=== PATIENT | male | born 1935 | race Caucasian/White ===

== ENCOUNTER 2024-11-06 16:27 | Observation (INO) | payer BC, MEDICARE ==
--- NOTE | 2024-11-06 17:16 | ED ---
General Adult HPI - General Chief complaint: Chest Pain Stated complaint: Flu Symptoms Time Seen by Provider: 11/06/24 16:37 Source: EMS Mode of arrival: EMS - History of Present Illness Initial comments: Dictation was produced using [employer] dictation software. please excuse any grammatical, word or spelling errors. Chief Complaint: 88-year-old male transfer from [facility] for elevated troponin History of Present Illness: Patient is an 80-year-old male he initially presented to [facility] for dizziness. He has had multiple falls. He has been dizzy for the last 3 days. Denies any cough or shortness of breath. Presented to [facility] where he had extensive workup which showed lung infiltrate. He was also positive for influenza A. He had a troponin level that was 0.042. 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 States that he feels dizzy at the bedside and no point in the last week or so has he had any chest pain or shortness of breath. He has had some coughing. The ROS documented in this emergency department record has been reviewed and confirmed by me. Those systems with pertinent positive or negative responses have been documented in the HPI. All other systems are other negative and/or noncontributory. - Related Data Home Medications Medication Instructions Recorded Confirmed Levothyroxine Sodium [Synthroid] 50 mcg PO AC-BRKFST 03/08/18 11/06/24 hydroCHLOROthiazide [Hydrodiuril] 50 mg PO DAILY 03/08/18 11/06/24 Aspirin EC [Ecotrin Low Dose] 81 mg PO DAILY 11/06/24 11/06/24 Atorvastatin [Lipitor] 40 mg PO HS 11/06/24 11/06/24 Empagliflozin [Jardiance] 10 mg PO DAILY 11/06/24 11/06/24 Insulin Glargine,Hum.rec.anlog 85 units SQ DAILY 11/06/24 11/06/24 [Lantus Solostar Pen] Metoprolol Succinate [Toprol XL] 50 mg PO DAILY 11/06/24 11/06/24 allopurinoL 100 mg PO DAILY 11/06/24 11/06/24 amLODIPine [Norvasc] 10 mg PO DAILY 11/06/24 11/06/24 Allergies Allergy/AdvReac Type Severity Reaction Status Date / Time Penicillins Allergy skin Verified 11/06/24 19:56 peeled off bottom of feet Sulfa (Sulfonamide AdvReac Itching Verified 11/06/24 19:56 Antibiotics) Review of Systems ROS Statement: Those systems with pertinent positive or pertinent negative responses have been documented in the HPI. ROS Other: All systems not noted in ROS Statement are negative. Past Medical History Past Medical History: Cancer, Diabetes Mellitus, Hyperlipidemia, Hypertension, Thyroid Disorder Additional Past Medical History / Comment(s): colon CA History of Any Multi-Drug Resistant Organisms: None Reported Past Surgical History: Bowel Resection Past Anesthesia/Blood Transfusion Reactions: No Reported Reaction Past Psychological History: No Psychological Hx Reported Smoking Status: Never smoker Past Alcohol Use History: None Reported Past Drug Use History: None Reported - Past Family History Mother Family Medical History: No Reported History Additional Family Medical History / Comment(s): at age 96 Father Family Medical History: Cancer Additional Family Medical History / Comment(s): colon General Exam - General Exam Comments Initial Comments: PHYSICAL EXAM: General Impression: Alert and oriented x3, not in acute distress HEENT: Normocephalic atraumatic, extra-ocular movements intact, pupils equal and reactive to light bilaterally, mucous membranes moist. Cardiovascular: Heart regular rate and rhythm Chest: Able to complete full sentences, no retractions, no tachypnea Abdomen: abdomen soft, non-tender, non-distended, no organomegaly Musculoskeletal: Pulses present and equal in all extremities, no peripheral edema Motor: no focal deficits noted Neurological: CN II-XII grossly intact, no focal motor or sensory deficits noted Skin: Intact with no visualized rashes Psych: Normal affect and mood Course Vital Signs 11/06/24 11/06/24 11/06/24 16:33 17:00 18:00 Temperature 99.8 F H Pulse Rate 86 80 84 Respiratory 20 21 19 Rate Blood Pressure 131/69 139/60 134/62 O2 Sat by Pulse 91 L 94 L 95 Oximetry 11/06/24 18:30 Temperature 98.9 F Pulse Rate 76 Respiratory 20 Rate Blood Pressure 143/81 O2 Sat by Pulse 95 Oximetry - Reevaluation(s) Reevaluation #1: 11/06/24 17:15 Transfer documentation was reviewed. Patient extensive workup. Troponin 0.042. There was a lung infiltrate seen on his x-ray of the chest. He was given 1 L of fluids. He was not given any aspirin or antibiotics. At the bedside patient is well-appearing in no acute distress. EKG Findings - EKG Comments: EKG Findings:: My EKG interpretation: Ventricular rate 87, sinus rhythm,. Normal 205, QRS 105, QTc 4 3. No OH prolongation, no QTC prolongation, no ST or T-wave changes noted. Overall, this EKG is unremarkable Medical Decision Making - Medical Decision Making Was pt. sent in by a medical professional or institution (, PA, LOGGING SPECIALIST, urgent care, hospital, or retirement...) When possible be specific @ -Transferred from outside emergency department Did you speak to anyone other than the patient for history (EMS, parent, family, police, friend...)? What history was obtained from this source @ -[No] Did you review nursing and triage notes (agree or disagree)? Why? @ -[I reviewed and agree with nursing and triage notes] Were old charts reviewed (outside hosp., previous admission, EMS record, old EKG, old radiological studies, urgent care reports/EKG's, retirement records)? Report findings @ -Transfer documentation reviewed Differential Diagnosis (chest pain, altered mental status, abdominal pain women, abdominal pain men, vaginal bleeding, musculoskeletal, weakness, fever, dyspnea, syncope, headache, dizziness, GI bleed, back pain, seizure, CVA, palpatations, mental health)? @ -Differential Dizziness: Benign paroxysmal positional Vertigo, Meniere's disease, otitis media, acoustic neuroma, vertebrobasilar insufficiency, cerebellar stroke, encephalitis, hypovolemic, arrhythmia, coronary artery syndrome, anemia, this is not meant to be an all-inclusive list EKG interpreted by me (3pts min.). @ -See above X-rays interpreted by me (1pt min.). @ -[None done] CT interpreted by me (1pt min.). @ -[None done] U/S interpreted by me (1pt. min.). @ -[None done] What testing was considered but not performed or refused? (CT, X-rays, U/S, labs)? Why? @ -[None] What meds were considered but not given or refused? Why? @ -[None] Was smoking cessation discussed for >3mins.? @ -[No] Were there social determinants of health that impacted care today? How? (Homelessness, low income, unemployed, alcoholism, drug addiction, transportation, low edu. Level, literacy, decrease access to med. care, retirement, rehab)? @ -[No] Was there de-escalation of care discussed even if they declined (Discuss DNR or withdrawal of care, Hospice)? DNR status @ -[No] What co-morbidities impacted this encounter? (DM, HTN, Smoking, COPD, CAD, Cancer, CVA, ARF, Chemo, Hep., AIDS, mental health diagnosis, sleep apnea, morbid obesity)? @ -[None] Was patient admitted / discharged? Hospital course, mention meds given and route, prescriptions, significant lab abnormalities, going to OR and other pertinent info. @ -80-year-old male transferred from outside hospital for elevated troponin. He was found to be influenza A positive. Vital signs upon arrival are within acceptable limits. Troponin repeated 0.056. EKG shows no signs of ischemia infarction. Patient does not have any ACS symptoms at the bedside. He will be admitted observation consultation to cardiology for elevated troponin. Covered with aspirin. Patient had infiltrate on his x-ray from outside hospital. Cover with antibiotics for possible coexisting community-acquired pneumonia. Patient also given Tamiflu given that he is 3 days symptomatic. Did you discuss the management of the patient with other professionals (professionals i.e. , PA, LOGGING SPECIALIST, lab, RT, psych nurse, long term care social worker, regulatory compliance engineer, teacher, child support officer, nurse case manager)? Give summary @ -Case discussed with hospitalist for admission Was critical care preformed (if so, how long)? @ -[No] Undiagnosed new problem with uncertain prognosis? @ -[No] Drug Therapy requiring intensive monitoring for toxicity (Heparin, Nitro, Insulin, Cardizem)? @ -[No] Were any procedures done? @ -[No] Diagnosis/symptom? Acute, or Chronic, or Acute on Chronic? Uncomplicated (without systemic symptoms) or Complicated (systemic symptoms)? @ -Elevated troponin Side effects of treatment? @ -[No] Exacerbation, Progression, or Severe Exacerbation? @ -[No] Poses a threat to life or bodily function? How? (Chest pain, [place], [place], pneumonia, PE, COPD, DKA, ARF, appy, cholecystitis, CVA, Diverticulitis, Homicidal, Suicidal, threat to staff... and all critical care pts) @ -yes - Lab Data Lab Results 11/06/24 Range/Units 17:49 Troponin I 0.056 H* (0.000-0.034) ng/mL Disposition Clinical Impression: Elevated troponin Disposition: ADMITTED IP TO THIS HOSP Condition: Fair Referrals: Eyad Muniz MD [Primary Care Provider] - 1-2 days Decision Time: 20:53
[2024-11-06] MEDS: ASPIRIN 81 MG PO STA (17:51)
[2024-11-06] MEDS: cefTRIAXone IN SWFI 1,000 MG/10 ML SYRINGE IVP STA (17:51)
[2024-11-06] MEDS: AZITHROMYCIN 500 MG in SODIUM CHLORIDE 0.9% 250 ML IVPB STA (17:52)
[2024-11-06] MEDS ORDERED: NITROGLYCERIN SL TABS 0.4 MG TAB SUBLINGUAL PRN (20:32)
[2024-11-06] MEDS: OSELTAMIVIR 75 MG CAP PO SCH (20:38)
[2024-11-07 06:28] LABS: Glucose,Whole Blood 46 mg/dL (70-110)
[2024-11-07 06:45] LABS: Glucose,Whole Blood 60 mg/dL (70-110)
[2024-11-07 07:06] LABS: Glucose,Whole Blood 98 mg/dL (70-110)
[2024-11-07 08:07] LABS: Basophils % (A) 0 %; Eosinophils % (A) 0 %; HGB 12.4 gm/dL (13.0-17.5); Lymphocytes # (A) 0.4 k/uL (1.0-4.8); Lymphocytes % (A) 5 %; MCH 30.5 pg (25.0-35.0); MCHC 33.6 g/dL (31.0-37.0); MCV 90.6 fL (80.0-100.0); Mean Platelet Volume 6.9; Monocytes # (A) 0.8 k/uL (0-1.0); Monocytes % (A) 9 %; Neutrophils # (A) 7.6 k/uL (1.3-7.7); Neutrophils % (A) 85 %; Platelet Count 101 k/uL (150-450); RBC 4.08 m/uL (4.30-5.90); RDW 14.6 % (11.5-15.5)
[2024-11-07 08:09] LABS: ALT 33 U/L (4-49); AST 57 U/L (17-59); African American GFR (CKD) 42 (>60 ml/min/1.73 sqM); Albumin 3.7 g/dL (3.5-5.0); Alkaline Phosphatase 81 U/L (38-126); Anion Gap 8 mmol/L; Blood Urea Nitrogen 39 mg/dL (9-20); Calcium 9.4 mg/dL (8.4-10.2); Carbon Dioxide 30 mmol/L (22-30); Chloride 101 mmol/L (98-107); Glucose 115 mg/dL (74-99); Magnesium 2.1 mg/dL (1.6-2.3); Non-African American GFR(CKD) 36 (>60 ml/min/1.73 sqM); Potassium 3.3 mmol/L (3.5-5.1); Sodium 139 mmol/L (137-145); Total Bilirubin 0.5 mg/dL (0.2-1.3)
[2024-11-07] MEDS: ASPIRIN 325 MG TAB PO SCH (08:50)
[2024-11-07] MEDS ORDERED: DEXTROSE 50% SYRINGE 50 ML IVP PRN ×2 (09:42)
--- NOTE | 2024-11-07 10:30 | XR ---
EXAMINATION TYPE: XR chest 2V DATE OF EXAM: 11/07/2024 COMPARISON: 11/06/2024 CLINICAL INDICATION: Male, 88 years old with history of Shortness of breath; , TECHNIQUE: XR chest 2V views of the chest. FINDINGS: Elevated right hemidiaphragm with bilateral subsegmental areas of consolidation. No overt failure or pneumothorax. No pleural effusion. Chronic deformity of the distal right clavicle and arthropathy of the left AC joint. Atherosclerotic change aorta. No obvious pneumothorax. IMPRESSION: 1. Bibasilar atelectasis favored over pneumonia correlate clinically. [facility], , 11/07/2024 10:28 AM
[2024-11-07 11:01] LABS: Chol/HDL Ratio 2.56 Ratio; LDL Cholesterol,Calculated 36.2 mg/dL (0.0-131.0); VLDL Calculation 16.22 mg/dL (5.00-40.00)
[2024-11-07 11:58] LABS: Glucose,Whole Blood 189 mg/dL (70-110)
[2024-11-07] MEDS: AZITHROMYCIN 500 MG in SODIUM CHLORIDE 0.9% 250 ML IVPB SCH (11:58)
--- NOTE | 2024-11-07 12:04 | P.HPIM ---
History of Present Illness H&P Date: 11/07/24 History of present illness; patient is a 88-year-old gentleman with past medical history significant for hypertension, hyperlipidemia, diabetes mellitus, hypothyroidism who is a transferred to [facility] from [facility] for elevated troponin. Patient initially presented to [facility] for dizziness and falls. Patient stated that he was all right 4 days back when he started having dizziness, dizziness was intermittent, felt like the whole room was spinning. Patient denied any loss of consciousness. There was no complaint of weakness of any extremity. No complaint of jerking movement of any extremity. There is no complaint of fever or chills. Patient denies any chest pain or shortness of breath. Patient was complaining of cough. Because of dizziness, patient went to [facility] where he was found to have influenza A and infiltrate on chest x-ray. Patient was started on Tamiflu, because of elevated troponin patient was transferred to [facility]. Patient admitted to internal medicine service REVIEW OF SYSTEMS: CONSTITUTIONAL: No fever, no malaise, no fatigue. HEENT: No recent visual problems or hearing problems. Denied any sore throat. CARDIOVASCULAR: As mentioned above PULMONARY: As mentioned above GASTROINTESTINAL: No diarrhea, no nausea, no vomiting, no abdominal pain. NEUROLOGICAL: No headaches, no weakness, no numbness. HEMATOLOGICAL: Denies any bleeding or petechiae. GENITOURINARY: Denies any burning micturition, frequency, or urgency. MUSCULOSKELETAL/RHEUMATOLOGICAL: Denies any joint pain, swelling, or any muscle pain. ENDOCRINE: Denies any polyuria or polydipsia. The rest of the 14-point review of systems is negative. PHYSICAL EXAMINATION: GENERAL: The patient is alert and oriented x3, not in any acute distress. Well developed, well nourished. HEENT: Pupils are round and equally reacting to light. EOMI. No scleral icterus. No conjunctival pallor. Normocephalic, atraumatic. No pharyngeal erythema. No thyromegaly. CARDIOVASCULAR: S1 and S2 present. No murmurs, rubs, or gallops. PULMONARY: Chest is clear to auscultation, no wheezing or crackles. ABDOMEN: Soft, nontender, nondistended, normoactive bowel sounds. No palpable organomegaly. MUSCULOSKELETAL: No joint swelling or deformity. EXTREMITIES: No cyanosis, clubbing, or pedal edema. NEUROLOGICAL: Gross neurological examination did not reveal any focal deficits. SKIN: No rashes. Assessment and plan Influenza A infection Bacterial pneumonia Dizziness Elevated troponin Hypertension Hyperlipidemia Diabetes mellitus Hypothyroidism Monitor vital signs Monitor CBC Monitor CMP Continue telemetry monitoring Trend troponin Ordered 2D echo Continue Tamiflu Ordered Rocephin and azithromycin Consult cardiology Resume home meds Labs and medication were reviewed.. Continue same treatment. Continue with symptomatic treatment. Resume home medication. Monitor labs and vitals. DVT and GI prophylaxis. Further recommendations as per clinical course of the patient Dictation was produced using [employer] dictation software. please excuse any grammatical, word or spelling errors. Past Medical History Past Medical History: Cancer, Diabetes Mellitus, Hyperlipidemia, Hypertension, Thyroid Disorder Additional Past Medical History / Comment(s): colon CA History of Any Multi-Drug Resistant Organisms: None Reported Past Surgical History: Bowel Resection Past Anesthesia/Blood Transfusion Reactions: No Reported Reaction Past Psychological History: No Psychological Hx Reported Smoking Status: Never smoker Past Alcohol Use History: None Reported Past Drug Use History: None Reported - Past Family History Mother Family Medical History: No Reported History Additional Family Medical History / Comment(s): at age 96 Father Family Medical History: Cancer Additional Family Medical History / Comment(s): colon Medications and Allergies Home Medications Medication Instructions Recorded Confirmed Type Levothyroxine Sodium [Synthroid] 50 mcg PO AC-BRKFST 03/08/18 11/06/24 History hydroCHLOROthiazide [Hydrodiuril] 50 mg PO DAILY 03/08/18 11/06/24 History Aspirin EC [Ecotrin Low Dose] 81 mg PO DAILY 11/06/24 11/06/24 History Atorvastatin [Lipitor] 40 mg PO HS 11/06/24 11/06/24 History Empagliflozin [Jardiance] 10 mg PO DAILY 11/06/24 11/06/24 History Insulin Glargine,Hum.rec.anlog 85 units SQ DAILY 11/06/24 11/06/24 History [Lantus Solostar Pen] Metoprolol Succinate [Toprol XL] 50 mg PO DAILY 11/06/24 11/06/24 History allopurinoL 100 mg PO DAILY 11/06/24 11/06/24 History amLODIPine [Norvasc] 10 mg PO DAILY 11/06/24 11/06/24 History Allergies Allergy/AdvReac Type Severity Reaction Status Date / Time Penicillins Allergy skin Verified 11/06/24 19:56 peeled off bottom of feet Sulfa (Sulfonamide AdvReac Itching Verified 11/06/24 19:56 Antibiotics) Physical Exam Vitals: Vital Signs Temp Pulse Resp BP Pulse Ox 11/07/24 08:46 98.0 F 81 18 131/75 99 11/07/24 05:00 98.4 F 81 17 141/65 94 L 11/06/24 21:00 74 20 141/76 94 L 11/06/24 20:00 78 20 136/58 97 11/06/24 19:00 79 16 132/80 96 11/06/24 18:30 98.9 F 76 20 143/81 95 11/06/24 18:00 84 19 134/62 95 11/06/24 17:00 80 21 139/60 94 L 11/06/24 16:33 99.8 F H 86 20 131/69 91 L Intake and Output 11/06/24 11/07/24 11/07/24 22:59 06:59 14:59 Other: Weight 92.986 kg Results CBC & Chem 7: 11/07/24 07:21 11/07/24 07:21 Labs: Abnormal Lab Results - Last 24 Hours (Table) 11/06/24 11/06/24 11/07/24 Range/Units 17:49 21:19 00:03 RBC (4.30-5.90) m/uL Hgb (13.0-17.5) gm/dL Hct (39.0-53.0) % Plt Count (150-450) k/uL Lymphocytes # (1.0-4.8) k/uL Potassium (3.5-5.1) mmol/L BUN (9-20) mg/dL Creatinine (0.66-1.25) mg/dL Glucose (74-99) mg/dL POC Glucose (mg/dL) (70-110) mg/dL Troponin I 0.056 H* 0.058 H* 0.058 H* (0.000-0.034) ng/mL Total Protein (6.3-8.2) g/dL 11/07/24 11/07/24 11/07/24 Range/Units 06:23 06:44 07:21 RBC (4.30-5.90) m/uL Hgb (13.0-17.5) gm/dL Hct (39.0-53.0) % Plt Count (150-450) k/uL Lymphocytes # (1.0-4.8) k/uL Potassium 3.3 L (3.5-5.1) mmol/L BUN 39 H (9-20) mg/dL Creatinine 1.66 H (0.66-1.25) mg/dL Glucose 115 H (74-99) mg/dL POC Glucose (mg/dL) 46 L* 60 L (70-110) mg/dL Troponin I (0.000-0.034) ng/mL Total Protein 6.0 L (6.3-8.2) g/dL 11/07/24 Range/Units 07:21 RBC 4.08 L (4.30-5.90) m/uL Hgb 12.4 L (13.0-17.5) gm/dL Hct 37.0 L (39.0-53.0) % Plt Count 101 L (150-450) k/uL Lymphocytes # 0.4 L (1.0-4.8) k/uL Potassium (3.5-5.1) mmol/L BUN (9-20) mg/dL Creatinine (0.66-1.25) mg/dL Glucose (74-99) mg/dL POC Glucose (mg/dL) (70-110) mg/dL Troponin I (0.000-0.034) ng/mL Total Protein (6.3-8.2) g/dL
[2024-11-07] MEDS: INSULIN ASPART (NovoLOG) 100 UNIT/ML VIAL SQ SCH (15:12)
[2024-11-07 19:55] VITALS: RESP 18
[2024-11-07 19:57] LABS: Glucose,Whole Blood 190 mg/dL (70-110)
[2024-11-07] MEDS: OSELTAMIVIR 30 MG CAP PO SCH (20:41)
[2024-11-07] MEDS: ATORVASTATIN 40 MG TAB PO SCH (20:41)
--- NOTE | 2024-11-07 22:50 | P.CRDCN ---
History of Present Illness Consult date: 11/07/24 History of present illness: HISTORY OF PRESENTING ILLNESS 88-year-old with PMH of hypertension, dyslipidemia, type 2 diabetes, hypothyroidism. He presented to [facility] from [facility] because of elevated troponin. Patient initially presented to [facility] because of generalized weakness, fatigue and fall. Over the last 3 to 4 days he has been feeling like room spinning sensation, lightheadedness, dizziness. He denies any loss of consciousness. Admission labs BUN 39, creatinine 1.6, troponin elevated with a flat pattern of 0.58, repeat 0.58. LDL 36, HbA1c 8.2 Hb 12.4 Positive for influenza EKG shows sinus rhythm with frequent PVCs Chest x-ray shows no significant saltation or significant pulmonary congestion. Poor inspiratory effort. REVIEW OF SYSTEMS 14 point review of system is negative except what is mentioned above in HPI. PHYSICAL EXAMINATION Vital signs reviewed. Head: Normocephalic. Eyes: Sclerae nonicteric. Neck: Brisk carotid upstroke, no jugular venous distention. Lungs: Clear to auscultation. Heart: Regular rate and rhythm, S1-S2, no S3, no murmur or rub. Abdomen: Soft nontender, positive bowel sounds. Extremities: No edema, intact distal pulses. Neuro: Alert, oritented, no focal deficits. Detailed neuro exam was not performed. ASSESSMENT Elevated troponin, less likely related to ACS Frequent PVCs Influenza A infection Dizziness and generalized weakness, likely due to above Essential hypertension Dyslipidemia PLAN Patient only has minimal troponin elevation. It is most likely not related to acute coronary syndrome and could be related to patient's influenza state Patient's dizziness and lightheadedness and generalized weakness could be related to his influenza. For frequent PVCs, I will start him on metoprolol succinate 25 mg daily Continue to monitor telemetry Obtain updated echocardiogram Continue aspirin, Lipitor Monitor electrolyte, magnesium is 2.1, potassium 3.3 today. Repeat magnesium level and potassium levels tomorrow Check TSH, NTproBNP and Mg level Recommend outpatient ischemic workup if he has not had 1 recently with a stress test. Al Brewster MD, FACC, RPVI Thank you for allowing [facility] to participate in this patient's care. Feel free to reach out in case of any followup questions. Past Medical History Past Medical History: Cancer, Diabetes Mellitus, Hyperlipidemia, Hypertension, Thyroid Disorder Additional Past Medical History / Comment(s): colon CA History of Any Multi-Drug Resistant Organisms: None Reported Past Surgical History: Bowel Resection Past Anesthesia/Blood Transfusion Reactions: No Reported Reaction Past Psychological History: No Psychological Hx Reported Smoking Status: Never smoker Past Alcohol Use History: None Reported Past Drug Use History: None Reported - Past Family History Mother Family Medical History: No Reported History Additional Family Medical History / Comment(s): at age 96 Father Family Medical History: Cancer Additional Family Medical History / Comment(s): colon Medications and Allergies Home Medications Medication Instructions Recorded Confirmed Type Levothyroxine Sodium [Synthroid] 50 mcg PO AC-BRKFST 03/08/18 11/06/24 History hydroCHLOROthiazide [Hydrodiuril] 50 mg PO DAILY 03/08/18 11/06/24 History Aspirin EC [Ecotrin Low Dose] 81 mg PO DAILY 11/06/24 11/06/24 History Atorvastatin [Lipitor] 40 mg PO HS 11/06/24 11/06/24 History Empagliflozin [Jardiance] 10 mg PO DAILY 11/06/24 11/06/24 History Insulin Glargine,Hum.rec.anlog 85 units SQ DAILY 11/06/24 11/06/24 History [Lantus Solostar Pen] Metoprolol Succinate [Toprol XL] 50 mg PO DAILY 11/06/24 11/06/24 History allopurinoL 100 mg PO DAILY 11/06/24 11/06/24 History amLODIPine [Norvasc] 10 mg PO DAILY 11/06/24 11/06/24 History Allergies Allergy/AdvReac Type Severity Reaction Status Date / Time Penicillins Allergy skin Verified 11/06/24 19:56 peeled off bottom of feet Sulfa (Sulfonamide AdvReac Itching Verified 11/06/24 19:56 Antibiotics) Physical Exam Vitals: Vital Signs Temp Pulse Pulse Resp BP BP Pulse Ox 11/07/24 19:55 87 18 122/71 94 L 11/07/24 19:53 97.8 F 87 18 189/51 99 11/07/24 18:00 92 20 122/67 97 11/07/24 16:00 90 18 132/70 97 11/07/24 12:00 87 20 142/74 96 11/07/24 08:46 98.0 F 81 18 131/75 99 11/07/24 05:00 98.4 F 81 17 141/65 94 L Intake and Output 11/07/24 11/07/24 11/07/24 06:59 14:59 22:59 Other: Voiding Method External Catheter Weight 92.986 kg Results 11/07/24 07:21 11/07/24 07:21 Cardiac Enzymes 11/07/24 11/07/24 Range/Units 00:03 07:21 AST 57 (17-59) U/L Troponin I 0.058 H* (0.000-0.034) ng/mL Lipids 11/07/24 Range/Units 07:21 Triglycerides 81.10 (0.00-149.00) mg/dL Cholesterol 86.00 (0.00-200.00) mg/dL HDL Cholesterol 33.60 L (40.00-60.00) mg/dL Cholesterol/HDL Ratio 2.56 Ratio CBC 11/07/24 Range/Units 07:21 WBC 9.0 (3.8-10.6) k/uL RBC 4.08 L (4.30-5.90) m/uL Hgb 12.4 L (13.0-17.5) gm/dL Hct 37.0 L (39.0-53.0) % Plt Count 101 L (150-450) k/uL Comprehensive Metabolic Panel 11/07/24 Range/Units 07:21 Sodium 139 (137-145) mmol/L Potassium 3.3 L (3.5-5.1) mmol/L Chloride 101 (98-107) mmol/L Carbon Dioxide 30 (22-30) mmol/L BUN 39 H (9-20) mg/dL Creatinine 1.66 H (0.66-1.25) mg/dL Glucose 115 H (74-99) mg/dL Calcium 9.4 (8.4-10.2) mg/dL AST 57 (17-59) U/L ALT 33 (4-49) U/L Alkaline Phosphatase 81 (38-126) U/L Total Protein 6.0 L (6.3-8.2) g/dL Albumin 3.7 (3.5-5.0) g/dL Current Medications Generic Name Dose Route Start Last Admin Trade Name Freq PRN Reason Stop Dose Admin Allopurinol 100 mg 11/08/24 09:00 Allopurinol 100 Mg Tab PO DAILY [facility] Aspirin 81 mg 11/08/24 09:00 Aspirin 81 Mg PO DAILY [facility] Atorvastatin Calcium 40 mg 11/07/24 21:00 11/07/24 20:41 Atorvastatin 40 Mg Tab PO 40 mg HS BEN Administration Dextrose/Water 25 ml 11/07/24 09:42 Dextrose 50% Syringe 50 Ml IVP PER PROTOCOL PRN Hypoglycemia Protocol Dextrose/Water 50 ml 11/07/24 09:42 Dextrose 50% Syringe 50 Ml IVP PER PROTOCOL PRN Hypoglycemia Protocol Azithromycin 500 mg/ Sodium 250 mls @ 250 mls/hr 11/07/24 12:00 11/07/24 11:58 Chloride IVPB 11/08/24 12:59 250 mls/hr 1200 [facility] Administration Protocol Ceftriaxone Sodium 2 gm/ 50 mls @ 100 mls/hr 11/08/24 09:00 Sodium Chloride IVPB Q24HR [facility] Protocol Insulin Aspart 0 unit 11/07/24 12:30 11/07/24 20:40 Insulin Aspart (Novolog) 100 Unit/Ml Vial SQ Not Given ACHS [facility] Protocol Levothyroxine Sodium 50 mcg 11/08/24 07:30 Levothyroxine 50 Mcg Tab PO AC-BRKFST [facility] Nitroglycerin 0.4 mg 11/06/24 20:32 Nitroglycerin Sl Tabs 0.4 Mg Tab SUBLINGUAL Q5M PRN Chest Pain Oseltamivir Phosphate 30 mg 11/07/24 21:00 11/07/24 20:41 Oseltamivir 30 Mg Cap PO 11/11/24 09:01 30 mg Q12HR [facility] Administration Protocol Intake and Output 11/07/24 11/07/24 11/07/24 06:59 14:59 22:59 Other: Voiding Method External Catheter Weight 92.986 kg Patient Weight 11/08/24 06:59 Weight 92.986 kg 11/07/24 07:21 11/07/24 07:21
[2024-11-07] MEDS: METOPROLOL SUCCINATE (ER) 25 MG TAB.ER.24H PO SCH (23:07)
[2024-11-08] MEDS: LEVOTHYROXINE 50 MCG TAB PO SCH (06:06)
[2024-11-08 06:13] LABS: Glucose,Whole Blood 126 mg/dL (70-110)
[2024-11-08 08:12] LABS: NT-Pro-B-Type Natriuretic Pept 1750 pg/mL
--- NOTE | 2024-11-08 09:13 | P.CONS ---
History of Present Illness - Reason for Consult Consult date: 11/07/24 Influenza, pneumonia Requesting physician: Edward Flores - Chief Complaint Weakness and multiple falls x 3 days - History of Present Illness Patient is a 88-year-old male with a past medical history significant for diabetes mellitus hypertension hyperlipidemia colon cancer, patient has been brought to the hospital for evaluation of weakness dizziness and did have m ultiple falls patient symptom apparently has been getting worse over the last 3 days patient was initially evaluated at [facility] workup in the [facility] shows patient tested positive for influenza A and did have lung infiltrate concerning for pneumonia also elevated troponin for the patient has been transferred to [facility] for further evaluation patient on presentation to hospital have low-grade fever of 99.8 F patient was nontachycardic or hypotensive mildly hypoxic on 2 L nasal cannula oxygen, the patient did have elevated troponin BNP there is also mildly elevated chest x-ray with bibasilar atelectasis favored over pneumonia patient is started on Tamiflu close and Z ithromax infectious disease was consulted for further management of antibiotic therapy patient has been complaining of more weakness over the last 3 days dizziness and did have multiple falls. Denies having any headache or significant URI symptoms except some runny nose denies having any chest pain shortness but he did have mild cough not bringing up any sputum no nausea vomiting no choking on the food no abdominal pain no diarrhea Review of Systems Positive point and negatives has been mentioned in the HPI, complete review of systems was performed and all other systems are negative Past Medical History Past Medical History: Cancer, Diabetes Mellitus, Hyperlipidemia, Hypertension, Thyroid Disorder Additional Past Medical History / Comment(s): colon CA History of Any Multi-Drug Resistant Organisms: None Reported Past Surgical History: Bowel Resection Past Anesthesia/Blood Transfusion Reactions: No Reported Reaction Past Psychological History: No Psychological Hx Reported Smoking Status: Never smoker Past Alcohol Use History: None Reported Past Drug Use History: None Reported - Past Family History Mother Family Medical History: No Reported History Additional Family Medical History / Comment(s): at age 96 Father Family Medical History: Cancer Additional Family Medical History / Comment(s): colon Medications and Allergies Home Medications Medication Instructions Recorded Confirmed Type Levothyroxine Sodium [Synthroid] 50 mcg PO [id number] 03/08/18 11/06/24 History hydroCHLOROthiazide [Hydrodiuril] 50 mg PO DAILY 03/08/18 11/06/24 History Aspirin EC [Ecotrin Low Dose] 81 mg PO DAILY 11/06/24 11/06/24 History Atorvastatin [Lipitor] 40 mg PO HS 11/06/24 11/06/24 History Empagliflozin [Jardiance] 10 mg PO DAILY 11/06/24 11/06/24 History Insulin Glargine,Hum.rec.anlog 85 units SQ DAILY 11/06/24 11/06/24 History [Lantus Solostar Pen] Metoprolol Succinate [Toprol XL] 50 mg PO DAILY 11/06/24 11/06/24 History allopurinoL 100 mg PO DAILY 11/06/24 11/06/24 History amLODIPine [Norvasc] 10 mg PO DAILY 11/06/24 11/06/24 History Allergies Allergy/AdvReac Type Severity Reaction Status Date / Time Penicillins Allergy skin Verified 11/06/24 19:56 peeled off bottom of feet Sulfa (Sulfonamide AdvReac Itching Verified 11/06/24 19:56 Antibiotics) Physical Exam Vitals: Vital Signs Temp Pulse Resp BP Pulse Ox 11/07/24 08:46 98.0 F 81 18 131/75 99 11/07/24 05:00 98.4 F 81 17 141/65 94 L 11/06/24 21:00 74 20 141/76 94 L 11/06/24 20:00 78 20 136/58 97 11/06/24 19:00 79 16 132/80 96 11/06/24 18:30 98.9 F 76 20 143/81 95 11/06/24 18:00 84 19 134/62 95 11/06/24 17:00 80 21 139/60 94 L 11/06/24 16:33 99.8 F H 86 20 131/69 91 L Intake and Output 11/06/24 11/07/24 11/07/24 22:59 06:59 14:59 Other: Weight 92.986 kg GENERAL DESCRIPTION: Elderly male lying in bed, no distress. No tachypnea or accessory muscle of respiration use. HEENT: Shows Pallor , no scleral icterus. Oral mucous membrane is dry. NECK: Trachea central, no thyromegaly. LUNGS: Unlabored breathing. Decreased breath sound at the base HEART: S1, S2, regular rate and rhythm. No loud murmur ABDOMEN: Soft, no tenderness , EXTREMITIES: No edema of feet. SKIN: No rash, no masses palpable. NEUROLOGICAL: The patient is awake, alert, oriented x3, mood and affect normal. Results CBC & Chem 7: 11/07/24 07:21 11/07/24 07:21 Labs: Abnormal Lab Results - Last 24 Hours (Table) 11/06/24 11/06/24 11/07/24 Range/Units 17:49 21:19 00:03 RBC (4.30-5.90) m/uL Hgb (13.0-17.5) gm/dL Hct (39.0-53.0) % Plt Count (150-450) k/uL Lymphocytes # (1.0-4.8) k/uL Potassium (3.5-5.1) mmol/L BUN (9-20) mg/dL Creatinine (0.66-1.25) mg/dL Glucose (74-99) mg/dL POC Glucose (mg/dL) (70-110) mg/dL Hemoglobin A1c (<=6.0) % Troponin I 0.056 H* 0.058 H* 0.058 H* (0.000-0.034) ng/mL Total Protein (6.3-8.2) g/dL HDL Cholesterol (40.00-60.00) mg/dL 11/07/24 11/07/24 11/07/24 Range/Units 06:23 06:44 07:21 RBC (4.30-5.90) m/uL Hgb (13.0-17.5) gm/dL Hct (39.0-53.0) % Plt Count (150-450) k/uL Lymphocytes # (1.0-4.8) k/uL Potassium 3.3 L (3.5-5.1) mmol/L BUN 39 H (9-20) mg/dL Creatinine 1.66 H (0.66-1.25) mg/dL Glucose 115 H (74-99) mg/dL POC Glucose (mg/dL) 46 L* 60 L (70-110) mg/dL Hemoglobin A1c (<=6.0) % Troponin I (0.000-0.034) ng/mL Total Protein 6.0 L (6.3-8.2) g/dL HDL Cholesterol 33.60 L (40.00-60.00) mg/dL 11/07/24 11/07/24 Range/Units 07:21 07:21 RBC 4.08 L (4.30-5.90) m/uL Hgb 12.4 L (13.0-17.5) gm/dL Hct 37.0 L (39.0-53.0) % Plt Count 101 L (150-450) k/uL Lymphocytes # 0.4 L (1.0-4.8) k/uL Potassium (3.5-5.1) mmol/L BUN (9-20) mg/dL Creatinine (0.66-1.25) mg/dL Glucose (74-99) mg/dL POC Glucose (mg/dL) (70-110) mg/dL Hemoglobin A1c 8.2 H (<=6.0) % Troponin I (0.000-0.034) ng/mL Total Protein (6.3-8.2) g/dL HDL Cholesterol (40.00-60.00) mg/dL Assessment and Plan (1) Influenza A Current Visit: Yes Status: Acute Code(s): J10.1 - FLU DUE TO OTH IDENT INFLUENZA VIRUS W OTH RESP MANIFEST SNOMED Code(s): 115797974 (2) Pneumonia Current Visit: Yes Status: Acute Code(s): J18.9 - PNEUMONIA, UNSPECIFIED ORGANISM SNOMED Code(s): 114163563 Plan: 1patient presented to hospital with increasing weakness multiple falls and diz ziness etiology is multifactorial patient did tested positive for influenza A and there was concern for possible secondary bacterial pneumonia 2-try to obtain sputum for Gram stain culture check a CRP and procalcitonin level 3-patient be treated with a Tamiflu Rocephin and Zithromax while waiting for the workup to be completed Family the bedside question answered We will follow on clinical condition and cultures to further adjust medication if needed Thank you for this consultation we will follow the patient along with you Dictation was produced using [employer] dictation software. please excuse any grammatical, word or spelling errors. Time with Patient: Greater than 30
[2024-11-08] MEDS: allopurinoL 100 MG TAB PO SCH (09:29)
[2024-11-08] MEDS: ASPIRIN 81 MG PO SCH (09:29)
[2024-11-08 11:13] LABS: Glucose,Whole Blood 171 mg/dL (70-110)
--- NOTE | 2024-11-08 11:16 | PN ---
PROGRESS NOTE SUBJECTIVE: Bolivar is an 88-year-old gentleman with history of hypertension, dyslipidemia, diabetes and hypothyroidism who is transferred from [facility] to [facility] because of elevated troponin. The patient has frequent PVCs and runs of nonsustained VT. He is positive for influenza A. PHYSICAL EXAMINATION: GENERAL: This morning, he is stable hemodynamically, afebrile. VITAL SIGNS: Heart rate is 78 beats per minute, blood pressure is 130/52, respiratory rate is 18. CHEST: Reveals bilateral wheezing. HEART: Reveals first and second heart sounds. No gallop. EXTREMITIES: Reveal mild edema. Labs show a hemoglobin of 12.4, BUN is 39, creatinine is 1.6. BNP is 1750. CURRENT MEDICATIONS: Include: 1. Aspirin. 2. Lipitor. 3. Toprol. 4. Synthroid along with Tamiflu. ASSESSMENT AND PLAN: 1. Elevated troponin probably related to the flu-like illness. 2. Frequent premature ventricular contractions. PLAN: We will follow the echo results once they are available. CHUN / DIANAN: [id number] /
--- NOTE | 2024-11-08 16:20 | P.PN ---
Subjective Progress Note Date: 11/08/24 patient is a 88-year-old gentleman with past medical history significant for hypertension, hyperlipidemia, diabetes mellitus, hypothyroidism who is a transferred to [facility] from [facility] for elevated troponin. Patient initially presented to [facility] for dizziness and falls. Patient stated that he was all right 4 days back when he started having dizziness, dizziness was intermittent, felt like the whole room was spinning. Patient denied any loss of consciousness. There was no complaint of weakness of any extremity. No complaint of jerking movement of any extremity. There is no complaint of fever or chills. Patient denies any chest pain or shortness of breath. Patient was complaining of cough. Because of dizziness, patient went to [facility] where he was found to have influenza A and infiltrate on chest x-ray. Patient was started on Tamiflu, because of elevated troponin patient was transferred to [facility]. Patient admitted to internal medicine service 11/08. Patient seen and examined. Breathing is improved. REVIEW OF SYSTEMS: CONSTITUTIONAL: No fever, no malaise,. CARDIOVASCULAR: No chest pain, no palpitations, no syncope. PULMONARY: No shortness of breath, no cough, GASTROINTESTINAL: No diarrhea, no nausea, no vomiting, no abdominal pain. NEUROLOGICAL: No headaches, no weakness, PHYSICAL EXAMINATION: GENERAL: The patient is alert and oriented x3, not in any acute distress. Well developed, well nourished. HEENT: Pupils are round and equally reacting to light. EOMI. No scleral icterus. No conjunctival pallor. Normocephalic, atraumatic. No pharyngeal erythema. No thyromegaly. CARDIOVASCULAR: S1 and S2 present. No murmurs, rubs, or gallops. PULMONARY: Coarse breath sound bilaterally, no wheezing or crackles. ABDOMEN: Soft, nontender, nondistended, normoactive bowel sounds. No palpable organomegaly. MUSCULOSKELETAL: No joint swelling or deformity. EXTREMITIES: No cyanosis, clubbing, or pedal edema. NEUROLOGICAL: Gross neurological examination did not reveal any focal deficits. SKIN: No rashes. Assessment and plan Influenza A infection Bacterial pneumonia Dizziness Elevated troponin Hypertension Hyperlipidemia Diabetes mellitus Hypothyroidism Monitor vital signs Monitor CBC Monitor CMP Continue telemetry monitoring Trend troponin Ordered 2D echo Continue Tamiflu Continue Rocephin and azithromycin Cardiology evaluated, recommend outpatient ischemic workup Resume home meds Labs and medication were reviewed.. Continue same treatment. Continue with symptomatic treatment. Resume home medication. Monitor labs and vitals. DVT and GI prophylaxis. Further recommendations as per clinical course of the patient Dictation was produced using [employer] dictation software. please excuse any grammatical, word or spelling errors. Objective - Vital Signs Vital signs: Vital Signs Temp 97.6 F 11/08/24 09:25 Pulse 78 11/08/24 12:20 Resp 18 11/08/24 14:00 BP 150/65 11/08/24 12:20 Pulse Ox 100 11/08/24 09:25 FiO2 Intake & Output 11/07/24 11/08/24 11/08/24 18:59 06:59 18:59 Intake Total 200 Output Total 800 Balance -800 200 Weight 89.5 kg Intake: Oral 200 Output: Urine 800 Other: Voiding Method External Catheter External Catheter - Labs CBC & Chem 7: 11/07/24 07:21 11/07/24 07:21 Labs: Abnormal Lab Results - Last 24 Hours (Table) 11/07/24 11/08/24 11/08/24 Range/Units 19:56 06:11 07:36 POC Glucose (mg/dL) 190 H 126 H (70-110) mg/dL Hemoglobin A1c 7.8 H (<=6.0) % 11/08/24 Range/Units 11:12 POC Glucose (mg/dL) 171 H (70-110) mg/dL Hemoglobin A1c (<=6.0) %
[2024-11-08 16:28] LABS: Glucose,Whole Blood 274 mg/dL (70-110)
[2024-11-08 20:07] LABS: Glucose,Whole Blood 265 mg/dL (70-110)
--- NOTE | 2024-11-08 21:10 | P.PN ---
Subjective Progress Note Date: 11/08/24 Principal diagnosis: Reason for follow-up is acute influenza question of pneumonia Patient is a 88-year-old male with a past medical history significant for diabetes mellitus hypertension hyperlipidemia colon cancer, patient has been brought to the hospital for evaluation of weakness dizziness and did have multiple falls patient has been diagnosed with acute influenza A chest x-ray with some infiltrate concerning for possible pneumonia. On today's evaluation that is 11/08/2024,the patient denies any fever or any chills, patient is breathing comfortably on room air, the patient denies chest pain shortness of breath and no worsening cough, patient denies abdominal pain, no nausea vomiting or diarrhea. Patient mention feeling better. Patient did have white count of 9.0 creatinine is 1.66 Objective - Vital Signs Vital signs: Vital Signs Temp 97.6 F 11/08/24 09:25 Pulse 78 11/08/24 12:20 Resp 18 11/08/24 14:00 BP 150/65 11/08/24 12:20 Pulse Ox 100 11/08/24 09:25 FiO2 Intake & Output 11/07/24 11/08/24 11/08/24 18:59 06:59 18:59 Intake Total 200 Output Total 800 Balance -800 200 Weight 89.5 kg Intake: Oral 200 Output: Urine 800 Other: Voiding Method External Catheter External Catheter - Exam GENERAL DESCRIPTION: An elderly male lying in bed in no distress RESPIRATORY SYSTEM: Unlabored breathing , decreased breath sounds at bases HEART: S1 S2 regular rate and rhythm , ABDOMEN: Soft , no tenderness EXTREMITIES: No edema feet - Labs CBC & Chem 7: 11/07/24 07:21 11/07/24 07:21 Labs: Abnormal Lab Results - Last 24 Hours (Table) 11/07/24 11/08/24 11/08/24 Range/Units 19:56 06:11 07:36 POC Glucose (mg/dL) 190 H 126 H (70-110) mg/dL Hemoglobin A1c 7.8 H (<=6.0) % 11/08/24 Range/Units 11:12 POC Glucose (mg/dL) 171 H (70-110) mg/dL Hemoglobin A1c (<=6.0) % Assessment and Plan (1) Influenza A Current Visit: Yes Status: Acute Code(s): J10.1 - FLU DUE TO OTH IDENT INFLUENZA VIRUS W OTH RESP MANIFEST SNOMED Code(s): 453954614 (2) Pneumonia Current Visit: Yes Status: Acute Code(s): J18.9 - PNEUMONIA, UNSPECIFIED O RGANISM SNOMED Code(s): 641194095 Plan: 1patient presented to hospital with increasing weakness multiple falls and dizziness etiology is multifactorial patient did tested positive for influenza A and there was concern for possible secondary bacterial pneumonia 2-try to obtain sputum for Gram stain culture 3-patient seem to have some clinical improvement we will continue with a Tamiflu Rocephin and Zithromax while waiting for the workup to be completed Family the bedside question answered Dictation was produced using [employer] dictation software. please excuse any grammatical, word or spelling errors. Time with Patient: Less than 30
[2024-11-09 06:15] LABS: Glucose,Whole Blood 173 mg/dL (70-110)
[2024-11-09 06:56] LABS: Basophils % (A) 0 %; Eosinophils # (A) 0.3 k/uL (0-0.7); Eosinophils % (A) 5 %; HCT 39.1 % (39.0-53.0); HGB 12.9 gm/dL (13.0-17.5); Lymphocytes % (A) 18 %; MCH 29.7 pg (25.0-35.0); MCV 90.1 fL (80.0-100.0); Monocytes # (A) 0.5 k/uL (0-1.0); Monocytes % (A) 10 %; Neutrophils # (A) 3.4 k/uL (1.3-7.7); Neutrophils % (A) 66 %; Platelet Count 120 k/uL (150-450); Poikilocytosis Slight; RBC 4.34 m/uL (4.30-5.90); RDW 14.5 % (11.5-15.5); WBC 5.2 k/uL (3.8-10.6)
[2024-11-09 07:12] LABS: ALT 40 U/L (4-49); African American GFR (CKD) 49 (>60 ml/min/1.73 sqM); Albumin 3.6 g/dL (3.5-5.0); Anion Gap 5 mmol/L; Blood Urea Nitrogen 43 mg/dL (9-20); C Reactive Protein 4.2 mg/dL (<1.0); Calcium 9.4 mg/dL (8.4-10.2); Carbon Dioxide 25 mmol/L (22-30); Chloride 105 mmol/L (98-107); Glucose 156 mg/dL (74-99); Non-African American GFR(CKD) 43 (>60 ml/min/1.73 sqM); Sodium 135 mmol/L (137-145); Total Bilirubin 1.2 mg/dL (0.2-1.3); Total Protein 6.3 g/dL (6.3-8.2)
[2024-11-09 07:14] LABS: Potassium 4.5 mmol/L (3.5-5.1)
[2024-11-09 07:15] LABS: AST 70 U/L (17-59); Alkaline Phosphatase 69 U/L (38-126)
--- NOTE | 2024-11-09 09:48 | P.PN ---
Subjective Progress Note Date: 11/09/24 HISTORY OF PRESENTING ILLNESS 88-year-old with PMH of hypertension, dyslipidemia, type 2 diabetes, hypothy roidism. He presented to [facility] from [facility] because of elevated troponin. Patient initially presented to [facility] because of generalized weakness, fatigue and fall. Over the last 3 to 4 days he has been feeling like room spinning sensation, lightheadedness, dizziness. He denies any loss of consciousness. Admission labs BUN 39, creatinine 1.6, troponin elevated with a flat pattern of 0.58, repeat 0.58. LDL 36, HbA1c 8.2 Hb 12.4 Positive for influenza EKG shows sinus rhythm with frequent PVCs Chest x-ray shows no significant saltation or significant pulmonary congestion. Poor inspiratory effort. Progress note 11/09/2024 Patient is seen and examined at bedside this a.m. Patient denies having any active chest pain chest pressure shortness of breath. Reports feeling symptomatically better. Telemetry still shows occasional PVCs. PHYSICAL EXAMINATION Vital signs reviewed. Head: Normocephalic. Eyes: Sclerae nonicteric. Neck: Brisk carotid upstroke, no jugular venous distention. Lungs: Clear to auscultation. Heart: Regular rate and rhythm, S1-S2, no S3, no murmur or rub. Abdomen: Soft nontender, positive bowel sounds. Extremities: No edema, intact distal pulses. Neuro: Alert, oritented, no focal deficits. Detailed neuro exam was not performed. ASSESSMENT Elevated troponin, less likely related to ACS Frequent PVCs Influenza A infection Dizziness and generalized weakness, likely due to above Essential hypertension Dyslipidemia PLAN Await echocardiogram results. Continue aspirin, Lipitor I will not resume his hydrochlorothiazide 50 mg at discharge. I instead I will start him on losartan 25 mg, amlodipine 2.5 mg daily. I would also recommend to resume his Jardiance on discharge. I would recommend that he should obtain a 7-day extended Holter monitor from [facility] office at time of discharge quantify PVC burden. Recommend outpatient ischemic workup if he has not had 1 recently with a stress test. Objective - Vital Signs Vital signs: Vital Signs Temp 97.8 F 11/09/24 03:42 Pulse 75 11/09/24 03:42 Resp 18 11/09/24 03:42 BP 138/73 11/09/24 03:42 Pulse Ox 96 11/08/24 20:00 FiO2 Intake & Output 11/08/24 11/09/24 11/09/24 18:59 06:59 18:59 Intake Total 422 150 Output Total 1100 1300 Balance -678 -1300 150 Weight 91.5 kg Intake: Oral 422 150 Output: Urine 1100 1300 Other: Voiding Method External Catheter External Catheter - Labs CBC & Chem 7: 11/09/24 06:33 11/09/24 06:33 Labs: Abnormal Lab Results - Last 24 Hours (Table) 11/08/24 11/08/24 11/08/24 Range/Units 07:36 11:12 16:18 Hgb (13.0-17.5) gm/dL Plt Count (150-450) k/uL Sodium (137-145) mmol/L BUN (9-20) mg/dL Creatinine (0.66-1.25) mg/dL Glucose (74-99) mg/dL POC Glucose (mg/dL) 171 H 274 H (70-110) mg/dL Hemoglobin A1c 7.8 H (<=6.0) % AST (17-59) U/L C-Reactive Protein (<1.0) mg/dL 11/08/24 11/09/24 11/09/24 Range/Units 20:05 06:14 06:33 Hgb 12.9 L (13.0-17.5) gm/dL Plt Count 120 L (150-450) k/uL Sodium (137-145) mmol/L BUN (9-20) mg/dL Creatinine (0.66-1.25) mg/dL Glucose (74-99) mg/dL POC Glucose (mg/dL) 265 H 173 H (70-110) mg/dL Hemoglobin A1c (<=6.0) % AST (17-59) U/L C-Reactive Protein (<1.0) mg/dL 11/09/24 Range/Units 06:33 Hgb (13.0-17.5) gm/dL Plt Count (150-450) k/uL Sodium 135 L (137-145) mmol/L BUN 43 H (9-20) mg/dL Creatinine 1.45 H (0.66-1.25) mg/dL Glucose 156 H (74-99) mg/dL POC Glucose (mg/dL) (70-110) mg/dL Hemoglobin A1c (<=6.0) % AST 70 H (17-59) U/L C-Reactive Protein 4.2 H (<1.0) mg/dL
[2024-11-09 10:03] VITALS: TEMP 98
[2024-11-09 11:59] LABS: Glucose,Whole Blood 244 mg/dL (70-110)
--- NOTE | 2024-11-09 12:07 | CA ---
Transthoracic Echo Report Name: Bolivar Wisdom Age: 88 Gender: M : 1935 Exam Date: 11/09/2024 08:01 Exam Location: [place] [facility] Ht (in): 70 Wt (lb): 205 Ordering Physician: Edward Flores MD Attending/Referring Phys: [employer] Jessica Gonsalves RDCS Procedure CPT: Indications: Slurred speech, CVA Cardiac Hx: Technical Quality: Good Contrast 1: Total Dose (mL): Contrast 2: Total Dose (mL): MEASUREMENTS (Male / Female) Normal Values 2D ECHO LV Diastolic Diameter PLAX 4.7 cm 4.2 - 5.9 / 3.9 - 5.3 cm LV Systolic Diameter PLAX 3.1 cm IVS Diastolic Thickness 1.2 cm 0.6 - 1.0 / 0.6 - 0.9 cm LVPW Diastolic Thickness 1.2 cm 0.6 - 1.0 / 0.6 - 0.9 cm LV Relative Wall Thickness 0.5 RV Internal Dim ED PLAX 3.3 cm LA Systolic Diameter LX 3.8 cm 3.0 - 4.0 / 2.7 - 3.8 cm LV Diastolic Volume MOD 4C 72.1 cm??? LV Systolic Volume MOD 4C 32.7 cm??? LV Ejection Fraction MOD 4C 54.6 % LV Cardiac Index MOD 4C 1617.7 cm???/min???m??? LV Diastolic Length 4C 8.1 cm LV Systolic Length 4C 6.7 cm LV Diastolic Volume MOD 2C 109.6 cm??? LV Systolic Volume MOD 2C 49.4 cm??? LV Ejection Fraction MOD 2C 54.9 % LV Cardiac Index MOD 2C 2476.1 cm???/min???m??? LV Diastolic Length 2C 8.3 cm LV Systolic Length 2C 7.2 cm LA Volume 71.2 cm??? 18 - 58 / 22 - 52 cm??? LA Volume Index 32.9 cm???/m??? 16 - 28 cm???/m??? M-MODE Aortic Root Diameter MM 3.7 cm AV Cusp Separation MM 2.5 cm DOPPLER AV Peak Velocity 172.3 cm/s AV Peak Gradient 11.9 mmHg AI Peak Velocity 367.2 cm/s AI Peak Gradient 53.9 mmHg AI Pressure Half Time 402.6 ms MV Area PHT 2.1 cm??? Mitral E Point Velocity 98.2 cm/s Mitral A Point Velocity 103.6 cm/s Mitral E to A Ratio 0.9 MV Deceleration Time 370.0 ms TR Peak Velocity 237.9 cm/s TR Peak Gradient 22.6 mmHg Right Ventricular Systolic Press 27.6 mmHg FINDINGS Left Ventricle Left ventricular ejection fraction is estimated at 55-60 %. Left ventricular cavity size normal. Mildly increased septal wall thickness. Right Ventricle Mild right ventricular dilatation. Right ventricular systolic pressure within normal limits. Right Atrium Normal right atrial size. No right atrial thrombus or mass seen. Left Atrium Mildly increased left atrial volume. Mildly increased left atrial area. No left atrial thrombus or mass present. Mitral Valve Structurally normal mitral valve. No mitral stenosis, regurgitation or prolapse. Aortic Valve Trileaflet aortic valve. Mild aortic regurgitation. Tricuspid Valve Structurally normal tricuspid valve. Mild tricuspid regurgitation. Pulmonic Valve Structurally normal pulmonic valve. Trace to mild pulmonic regurgitation. Pericardium No pericardial or pleural effusion. Aorta Normal size aortic root and proximal ascending aorta. CONCLUSIONS Normal LV function Mild aortic regurgitation No obvious source for thromboembolic CVA Previewed by: Dr. Moise Solis MD (Electronically Signed) Final Date: 09 November 2024 12:06
[2024-11-09] MEDS: LOSARTAN 25 MG TAB PO SCH (13:08)
[2024-11-09] MEDS: amLODIPine 2.5 MG TAB PO SCH (13:08)
--- NOTE | 2024-11-09 14:22 | P.DS ---
Providers Date of admission: 11/06/24 20:50 Expected date of discharge: 11/09/24 Attending physician: Victor Manuel Gurorla Consults: 11/06/24 20:32 Consult Physician Urgent Consulting Provider: Deondre Shine Consult Reason/Comments: elevated troponin Do you want consulting provider notified?: Yes 11/07/24 09:42 Consult Physician Routine Consulting Provider: Mariposa Higuera Consult Reason/Comments: Influenza, pneumonia Do you want consulting provider notified?: Yes Primary care physician: [facility] Course: Discharge diagnoses; Influenza A infection Bacterial pneumonia Dizziness Elevated troponin Hypertension Hyperlipidemia Diabetes mellitus Hypothyroidism Hospital course; patient is a 88-year-old gentleman with past medical history significant for hypertension, hyperlipidemia, diabetes mellitus, hypothyroidism who is a transferred to [facility] from [facility] for elevated troponin. Patient initially presented to [facility] for dizziness and falls. Patient stated that he was all right 4 days back when he started having dizziness, dizziness was intermittent, felt like the whole room was spinning. Patient denied any loss of consciousness. There was no complaint of weakness of any extremity. No complaint of jerking movement of any extremity. There is no complaint of fever or chills. Patient denies any chest pain or shortness of breath. Patient was complaining of cough. Because of dizziness, patient went to [facility] where he was found to have influenza A and infiltrate on chest x-ray. Patient was started on Tamiflu, because of elevated troponin patient was transferred to [facility]. Patient admitted to internal medicine service 11/08. Patient seen and examined. Breathing is improved. 11/09 patient seen and examined. Cardiology evaluated, recommend outpatient ischemic workup.Cardiology recommended discontinuing HCTZ at discharge and keeping patient on losartan and Norvasc, patient will need Holter monitor at MD. PHYSICAL EXAMINATION: GENERAL: The patient is alert and oriented x3, not in any acute distress. Well developed, well nourished. HEENT: Pupils are round and equally reacting to light. EOMI. No scleral icterus. No conjunctival pallor. Normocephalic, atraumatic. No pharyngeal erythema. No thyromegaly. CARDIOVASCULAR: S1 and S2 present. No murmurs, rubs, or gallops. PULMONARY: Chest is clear to auscultation, no wheezing or crackles. ABDOMEN: Soft, nontender, nondistended, normoactive bowel sounds. No palpable organomegaly. MUSCULOSKELETAL: No joint swelling or deformity. EXTREMITIES: No cyanosis, clubbing, or pedal edema. NEUROLOGICAL: Gross neurological examination did not reveal any focal deficits. SKIN: No rashes. Dictation was produced using [employer] dictation software. please excuse any grammatical, word or spelling errors. Patient Condition at Discharge: Fair Plan - Discharge Summary Discharge Rx Participant: No New Discharge Prescriptions: New Losartan [Cozaar] 25 mg PO DAILY 30 Days #30 tab Metoprolol Succinate (ER) [Toprol XL] 25 mg PO DAILY #30 tab cefuroxime axetiL [Ceftin] 500 mg PO BID 3 Days #6 tab Nitroglycerin Sl Tabs [Nitrostat] 0.4 mg SUBLINGUAL Q5M PRN #30 tab PRN Reason: Chest Pain amLODIPine [Norvasc] 2.5 mg PO DAILY 30 Days #30 tab Oseltamivir [Tamiflu] 30 mg PO Q12HR 2 Days #4 cap Continue Levothyroxine Sodium [Synthroid] 50 mcg PO AC-BRKFST Insulin Glargine,Hum.rec.anlog [Lantus Solostar Pen] 85 units SQ DAILY Empagliflozin [Jardiance] 10 mg PO DAILY Atorvastatin [Lipitor] 40 mg PO HS Aspirin EC [Ecotrin Low Dose] 81 mg PO DAILY allopurinoL 100 mg PO DAILY Discontinued hydroCHLOROthiazide [Hydrodiuril] 50 mg PO DAILY Metoprolol Succinate [Toprol XL] 50 mg PO DAILY amLODIPine [Norvasc] 10 mg PO DAILY Discharge Medication List Levothyroxine Sodium [Synthroid] 50 mcg PO AC-BRKFST 03/08/18 [History] Aspirin EC [Ecotrin Low Dose] 81 mg PO DAILY 11/06/24 [History] Atorvastatin [Lipitor] 40 mg PO HS 11/06/24 [History] Empagliflozin [Jardiance] 10 mg PO DAILY 11/06/24 [History] Insulin Glargine,Hum.rec.anlog [Lantus Solostar Pen] 85 units SQ DAILY 11/06/24 [History] allopurinoL 100 mg PO DAILY 11/06/24 [History] Losartan [Cozaar] 25 mg PO DAILY 30 Days #30 tab 11/09/24 [Rx] Metoprolol Succinate (ER) [Toprol XL] 25 mg PO DAILY #30 tab 11/09/24 [Rx] Nitroglycerin Sl Tabs [Nitrostat] 0.4 mg SUBLINGUAL Q5M PRN #30 tab 11/09/24 [Rx] Oseltamivir [Tamiflu] 30 mg PO Q12HR 2 Days #4 cap 11/09/24 [Rx] amLODIPine [Norvasc] 2.5 mg PO DAILY 30 Days #30 tab 11/09/24 [Rx] cefuroxime axetiL [Ceftin] 500 mg PO BID 3 Days #6 tab 11/09/24 [Rx] Follow up Appointment(s)/Referral(s): Eyad Muniz MD [Primary Care Provider] - 1-2 days Al Brewster MD [Medical Doctor] - 1 Week Discharge Disposition: HOME SELF-CARE
--- NOTE | 2024-11-09 14:56 | P.PN ---
Subjective Progress Note Date: 11/09/24 Principal diagnosis: Reason for follow-up is acute influenza question of pneumonia Patient is a 88-year-old male with a past medical history significant for diabetes mellitus hypertension hyperlipidemia colon cancer, patient has been brought to the hospital for evaluation of weakness dizziness and did have multiple falls patient has been diagnosed with acute influenza A chest x-ray with some infiltrate concerning for possible pneumonia. On today's evaluation that is 11/09/2024,the patient remains to be afebrile, patient is on room air not requiring supplemental oxygen and denies any shortness of breath no chest pain and cough is decreased in intensity h.Patient denies having any nausea or vomiting, no abdominal pain and no diarrhea has been reported, patient mention feeling better wants to go home. Patient white count is 5.2 creatinine is 1.45 procalcitonin 0.13 Objective - Vital Signs Vital signs: Vital Signs Temp 98.0 F 11/09/24 08:30 Pulse 83 11/09/24 08:30 Resp 18 11/09/24 08:30 BP 143/60 11/09/24 08:30 Pulse Ox 96 11/08/24 20:00 FiO2 Intake & Output 11/08/24 11/09/24 11/09/24 18:59 06:59 18:59 Intake Total 422 150 Output Total 1100 1300 Balance -678 -1300 150 Weight 91.5 kg Intake: Oral 422 150 Output: Urine 1100 1300 Other: Voiding Method External Catheter External Catheter External Catheter - Exam GENERAL DESCRIPTION: An elderly male lying in bed in no distress RESPIRATORY SYSTEM: Unlabored breathing , decreased breath sounds at bases HEART: S1 S2 regular rate and rhythm , ABDOMEN: Soft , no tenderness EXTREMITIES: No edema feet - Labs CBC & Chem 7: 11/09/24 06:33 11/09/24 06:33 Labs: Abnormal Lab Results - Last 24 Hours (Table) 11/08/24 11/08/24 11/09/24 Range/Units 16:18 20:05 06:14 Hgb (13.0-17.5) gm/dL Plt Count (150-450) k/uL Sodium (137-145) mmol/L BUN (9-20) mg/dL Creatinine (0.66-1.25) mg/dL Glucose (74-99) mg/dL POC Glucose (mg/dL) 274 H 265 H 173 H (70-110) mg/dL AST (17-59) U/L C-Reactive Protein (<1.0) mg/dL 11/09/24 11/09/24 11/09/24 Range/Units 06:33 06:33 11:58 Hgb 12.9 L (13.0-17.5) gm/dL Plt Count 120 L (150-450) k/uL Sodium 135 L (137-145) mmol/L BUN 43 H (9-20) mg/dL Creatinine 1.45 H (0.66-1.25) mg/dL Glucose 156 H (74-99) mg/dL POC Glucose (mg/dL) 244 H (70-110) mg/dL AST 70 H (17-59) U/L C-Reactive Protein 4.2 H (<1.0) mg/dL Assessment and Plan (1) Influenza A Current Visit: Yes Status: Acute Code(s): J10.1 - FLU DUE TO OTH IDENT INFLUENZA VIRUS W OTH RESP MANIFEST SNOMED Code(s): 477318137 (2) Pneumonia Current Visit: Yes Status: Acute Code(s): J18.9 - PNEUMONIA, UNSPECIFIED ORGANISM SNOMED Code(s): 548071867 Plan: 1patient presented to hospital with increasing weakness multiple falls and dizziness etiology is multifactorial patient did tested positive for influenza A and there was concern for possible secondary bacterial pneumonia 2-try to obtain sputum for Gram stain culture 3-patient has shown clinical improvement we will continue with a Tamiflu to finish his 5-day course of therapy with a procalcitonin negative antibiotics can be safely discontinued Dictation was produced using [employer] dictation software. please excuse any grammatical, word or spelling errors. Time with Patient: Less than 30
[2024-11-09 15:10] VITALS: BP 150/63; PULSE 89
== END 2024-11-09 15:40 | disposition home or self-care (01) ==
LOC: EC 16:27 → 3SCARD 20:50
PROVIDERS: ADMIT Hospitalist; ATTEND Hospitalist
DX: J10.08 Influenza due to other identified influenza virus with other specified pneumonia (principal); J15.9 Unspecified bacterial pneumonia; R42 Dizziness and giddiness; R53.1 Weakness; R79.89 Other specified abnormal findings of blood chemistry; I10 Essential (primary) hypertension; E78.5 Hyperlipidemia, unspecified; E03.9 Hypothyroidism, unspecified; E11.9 Type 2 diabetes mellitus without complications; I49.3 Ventricular premature depolarization; R29.6 Repeated falls; Z79.82 Long term (current) use of aspirin; Z79.84 Long term (current) use of oral hypoglycemic drugs; Z79.890 Hormone replacement therapy; Z79.899 Other long term (current) drug therapy; Z88.0 Allergy status to penicillin; Z88.2 Allergy status to sulfonamides
CPT/HCPCS: 96366 ×4; 96367; 96376; 96365; 99285; 36415; 93005 ×2; 93306; 97161; 83880; 80061; 80053 ×2; 84443; 83735 ×2; 84484 ×2; 85025 ×2; 86140; 83036 ×2; 84145; 71046; G0378 ×4; J0456 ×3; J0696 ×3